=== PATIENT | male | born 1995 | race Two or more races ===

== ENCOUNTER 2025-07-20 02:41 | Emergency (ER) | payer OTHER ==
[~2025-07-20] VITALS: Ht 185.4 cm; Wt 99.8 kg
[2025-07-20 02:57] VITALS: TEMP 98
[2025-07-20 03:59] VITALS: BP 121/72; O2SAT 98
== END 2025-07-20 03:59 ==
LOC: ER 02:44
DX: S60.511A Abrasion of right hand, initial encounter (principal); Z88.0 Allergy status to penicillin; W18.39XA Other fall on same level, initial encounter; Y93.89 Activity, other specified; Y92.89 Other specified places as the place of occurrence of the external cause; Y99.9 Unspecified external cause status